=== PATIENT | female | born 1940 | race Caucasian/White ===

== ENCOUNTER 2021-02-24 15:31 | Emergency (ER) | payer MEDICARE, SELFPAY ==
[2021-02-24 15:33] VITALS: BP 110/56; PULSE 83; RESP 19; TEMP 36.4; O2SAT 96; BMI 19.0
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
== END 2021-02-24 17:38 | disposition home or self-care (01) ==
PROVIDERS: Emergency Provider Emergency Medicine; PCP Psychiatry & Neurology Neurology
DX: S20.219A Contusion of unspecified front wall of thorax, initial encounter (principal); V47.1XXA Car passenger injured in collision with fixed or stationary object in nontraffic accident, initial encounter; Y93.89 Activity, other specified; Y92.9 Unspecified place or not applicable; Y99.8 Other external cause status; G20 Parkinson's disease
CPT/HCPCS: 71046; 99284